=== PATIENT | female | born 1985 | race Two or more races ===

== ENCOUNTER 2025-08-06 08:30 | Outpatient (RCR) | payer MEDICAID, SELFPAY ==
--- NOTE | 2025-08-05 08:45 | XR_ITS ---
Examination: Nuclear medicine thyroid scan and uptake Date and time: August 05, 2025 1622 hours INDICATIONS: Swollen neck heartburn fatigue, beginning 2 months ago TECHNIQUE AND FINDINGS: Oral administration 29 uCi [id number] 6 hour 24 hour uptake values recorded as well as anterior bilateral oblique thyroid scans 6 hour uptake 10.1% normal range 6-24% 24 hour uptake 24.2% normal range 10-36% Homogeneous thyroid scans IMPRESSION: Negative study
== END 2025-08-11 23:59 | disposition home or self-care (01) ==
LOC: SNUC 08:30
DX: E04.2 Nontoxic multinodular goiter (principal)
CPT/HCPCS: 78013; A9516